=== PATIENT | male | born 1950 | race Caucasian/White ===

== ENCOUNTER → 2019-03-29 12:20 | Outpatient (BNVA) | payer MEDICARE, MEDICAID, SELFPAY | PROVIDERS: Family Provider Family Medicine; PCP Family Medicine; Visit Provider Family Medicine | DX: I11.0 Hypertensive heart disease with heart failure (principal); I50.30 Unspecified diastolic (congestive) heart failure; J30.2 Other seasonal allergic rhinitis; R73.03 Prediabetes; R25.1 Tremor, unspecified; E83.42 Hypomagnesemia; E87.6 Hypokalemia; R60.9 Edema, unspecified; J44.1 Chronic obstructive pulmonary disease with (acute) exacerbation; Z87.891 Personal history of nicotine dependence | CPT/HCPCS: 36415; 80048; 83036; 83735 ==

== ENCOUNTER → 2019-08-23 13:30 | Outpatient (BNVA) | payer MEDICARE, MEDICAID, SELFPAY | PROVIDERS: Family Provider Family Medicine; PCP Family Medicine; Visit Provider Family Medicine | DX: I10 Essential (primary) hypertension; R60.9 Edema, unspecified; E83.42 Hypomagnesemia; R25.1 Tremor, unspecified; E87.6 Hypokalemia; R73.03 Prediabetes; L03.115 Cellulitis of right lower limb | CPT/HCPCS: 80048; 83036; 83735 ==

== ENCOUNTER → 2019-11-08 17:17 | Outpatient (BNVA) | payer MEDICARE, MEDICAID, SELFPAY | PROVIDERS: Family Provider Family Medicine; PCP Family Medicine; Visit Provider Family Medicine | DX: L03.90 Cellulitis, unspecified (principal); I10 Essential (primary) hypertension; R60.9 Edema, unspecified; E83.42 Hypomagnesemia; R25.1 Tremor, unspecified; E87.6 Hypokalemia; R73.03 Prediabetes | CPT/HCPCS: 80048; 80061 ==

== ENCOUNTER → 2020-01-31 18:00 | Outpatient (BNVA) | payer MEDICARE, MEDICAID, SELFPAY ==
[2019-11-10 15:33] VITALS: BP 118/65; BMI 39.4
== END ==
PROVIDERS: PCP Family Medicine; Visit Provider Family Medicine
DX: J44.9 Chronic obstructive pulmonary disease, unspecified (principal); F17.208 Nicotine dependence, unspecified, with other nicotine-induced disorders; N40.1 Benign prostatic hyperplasia with lower urinary tract symptoms; R39.11 Hesitancy of micturition; E87.6 Hypokalemia; R25.1 Tremor, unspecified; R60.9 Edema, unspecified; I10 Essential (primary) hypertension; R73.03 Prediabetes; Z23 Encounter for immunization; L30.9 Dermatitis, unspecified; F25.1 Schizoaffective disorder, depressive type
CPT/HCPCS: 80048; 83036

== ENCOUNTER → 2020-03-13 11:08 | Outpatient (BNVA) | payer OTHER, SELFPAY ==
[2019-11-10 15:33] VITALS: BP 118/65; BMI 39.4
== END ==
PROVIDERS: PCP Family Medicine; Visit Provider Family Medicine
DX: E87.6 Hypokalemia (principal)
CPT/HCPCS: 80048

== ENCOUNTER → 2020-06-20 16:24 | Outpatient (BNVA) | payer MEDICARE, MEDICAID, SELFPAY ==
[2019-11-10 15:33] VITALS: BP 118/65; BMI 39.4
== END ==
PROVIDERS: PCP Family Medicine; Visit Provider Family Medicine
DX: E83.42 Hypomagnesemia (principal); R73.03 Prediabetes; E87.1 Hypo-osmolality and hyponatremia
CPT/HCPCS: 80048; 83036; 83735

== ENCOUNTER → 2020-07-31 14:45 | Outpatient (BNVA) | payer OTHER, SELFPAY ==
[2019-11-10 15:33] VITALS: BP 118/65; BMI 39.4
== END ==
PROVIDERS: PCP Family Medicine; Visit Provider Psychiatry & Neurology Neurology
DX: F25.1 Schizoaffective disorder, depressive type (principal)
CPT/HCPCS: 36415; 80061

== ENCOUNTER → 2021-02-12 12:25 | Outpatient (BNVA) | payer MEDICARE, MEDICAID, SELFPAY ==
[2020-08-06 13:40] VITALS: BP 125/64; BMI 36.8
== END ==
PROVIDERS: PCP Family Medicine; Visit Provider Family Medicine
DX: J44.9 Chronic obstructive pulmonary disease, unspecified (principal); M54.9 Dorsalgia, unspecified; G89.29 Other chronic pain; I10 Essential (primary) hypertension; J30.2 Other seasonal allergic rhinitis; R60.9 Edema, unspecified; E83.42 Hypomagnesemia; N40.1 Benign prostatic hyperplasia with lower urinary tract symptoms; R39.11 Hesitancy of micturition; E11.9 Type 2 diabetes mellitus without complications
CPT/HCPCS: 80053; 80061; 83036; 83735; 85025

== ENCOUNTER → 2021-04-18 15:30 | Outpatient (BNVA) | payer MEDICARE, MEDICAID, SELFPAY ==
[2020-08-06 13:40] VITALS: BP 125/64; BMI 36.8
== END ==
PROVIDERS: PCP Family Medicine; Visit Provider Family Medicine
DX: N39.498 Other specified urinary incontinence (principal); N40.1 Benign prostatic hyperplasia with lower urinary tract symptoms; E87.1 Hypo-osmolality and hyponatremia; I10 Essential (primary) hypertension; D72.9 Disorder of white blood cells, unspecified; R60.9 Edema, unspecified; R73.03 Prediabetes; D72.821 Monocytosis (symptomatic)
CPT/HCPCS: 80048; 81000; 85007; 85027

== ENCOUNTER → 2021-09-11 13:16 | Outpatient (BNVA) | payer OTHER, SELFPAY ==
[2021-09-11 08:58] VITALS: BP 124/60; BMI 36.2
== END ==
PROVIDERS: PCP Family Medicine; Visit Provider Psychiatry & Neurology Neurology
DX: Z79.899 Other long term (current) drug therapy (principal); F25.0 Schizoaffective disorder, bipolar type
CPT/HCPCS: 80053; 80061; 83036

== ENCOUNTER → 2022-02-27 10:56 | Outpatient (BNVA) | payer MEDICARE, OTHER, SELFPAY ==
[2021-09-16 16:12] VITALS: BP 135/76; BMI 35.7
== END ==
PROVIDERS: PCP Family Medicine; Visit Provider Family Medicine
DX: I10 Essential (primary) hypertension (principal); E11.9 Type 2 diabetes mellitus without complications; J44.9 Chronic obstructive pulmonary disease, unspecified; M54.9 Dorsalgia, unspecified; R60.9 Edema, unspecified; J30.2 Other seasonal allergic rhinitis; E83.42 Hypomagnesemia; G89.29 Other chronic pain; N40.1 Benign prostatic hyperplasia with lower urinary tract symptoms; E87.6 Hypokalemia; J44.1 Chronic obstructive pulmonary disease with (acute) exacerbation; E87.1 Hypo-osmolality and hyponatremia; R39.11 Hesitancy of micturition; Z68.36 Body mass index [BMI] 36.0-36.9, adult
CPT/HCPCS: 80048; 83036; 83735

== ENCOUNTER → 2022-08-28 10:18 | Outpatient (BNVA) | payer MEDICARE, MEDICAID, SELFPAY ==
[2021-09-16 16:12] VITALS: BP 135/76; BMI 35.7
== END ==
PROVIDERS: PCP Family Medicine; Visit Provider Registered Nurse
DX: Z79.899 Other long term (current) drug therapy (principal)
CPT/HCPCS: 80053; 80061; 82306; 82607; 83036; 85025

== ENCOUNTER → 2023-02-26 11:25 | Outpatient (BNVA) | payer MEDICARE, MEDICAID, SELFPAY ==
[2022-09-01 11:44] VITALS: BP 120/63; BMI 34.0
== END ==
PROVIDERS: PCP Family Medicine; Visit Provider Family Medicine
DX: E11.9 Type 2 diabetes mellitus without complications (principal); Z12.5 Encounter for screening for malignant neoplasm of prostate
CPT/HCPCS: 80048; 83036; G0103

== ENCOUNTER → 2023-08-27 10:32 | Outpatient (BNVA) | payer MEDICARE, OTHER, SELFPAY ==
[2022-09-01 11:44] VITALS: BP 120/63; BMI 34.0
== END ==
PROVIDERS: PCP Family Medicine; Visit Provider Psychiatry & Neurology Psychiatry
DX: Z79.899 Other long term (current) drug therapy (principal); F25.1 Schizoaffective disorder, depressive type; F17.208 Nicotine dependence, unspecified, with other nicotine-induced disorders; I10 Essential (primary) hypertension; E11.9 Type 2 diabetes mellitus without complications
CPT/HCPCS: 80061; 83036; 83735; 84443; 85025

== ENCOUNTER → 2024-02-25 10:00 | Outpatient (BNVA) | payer MEDICARE, OTHER, SELFPAY ==
[2022-09-01 11:44] VITALS: BP 120/63; BMI 34.0
== END ==
PROVIDERS: PCP Family Medicine; Visit Provider Family Medicine
DX: Z12.5 Encounter for screening for malignant neoplasm of prostate (principal); I10 Essential (primary) hypertension; E11.9 Type 2 diabetes mellitus without complications; J44.1 Chronic obstructive pulmonary disease with (acute) exacerbation
CPT/HCPCS: 80053; 80061; 83036; 83735; 85025; G0103

== ENCOUNTER → 2024-03-10 10:45 | Outpatient (BNVA) | payer MEDICARE, SELFPAY ==
[2022-09-01 11:44] VITALS: BP 120/63; BMI 34.0
== END ==
PROVIDERS: PCP Family Medicine; Visit Provider Podiatrist Foot & Ankle Surgery
DX: E11.621 Type 2 diabetes mellitus with foot ulcer (principal); L97.512 Non-pressure chronic ulcer of other part of right foot with fat layer exposed
CPT/HCPCS: 99203

== ENCOUNTER → 2024-04-28 13:46 | Outpatient (BNVA) | payer MEDICARE, SELFPAY ==
[2022-09-01 11:44] VITALS: BP 120/63; BMI 34.0
== END ==
PROVIDERS: PCP Family Medicine; Visit Provider Family Medicine
DX: R31.9 Hematuria, unspecified (principal); E87.1 Hypo-osmolality and hyponatremia
CPT/HCPCS: 80048; 81000

== ENCOUNTER → 2024-06-30 16:50 | Outpatient (BNVA) | payer MEDICARE, OTHER, SELFPAY ==
[2022-09-01 11:44] VITALS: BP 120/63; BMI 34.0
== END ==
PROVIDERS: PCP Family Medicine; Visit Provider Psychiatry & Neurology Psychiatry
DX: Z79.899 Other long term (current) drug therapy (principal)
CPT/HCPCS: 80053; 80061; 83036; 84443; 85025

== ENCOUNTER → 2024-10-18 15:24 | Outpatient (BNVA) | payer MEDICARE, SELFPAY ==
[2022-09-01 11:44] VITALS: BP 120/63; BMI 34.0
== END ==
PROVIDERS: PCP Family Medicine; Visit Provider Family Medicine
DX: I10 Essential (primary) hypertension (principal); E87.6 Hypokalemia
CPT/HCPCS: 80053; 85025

== ENCOUNTER → 2025-03-20 08:51 | Outpatient (BNVA) | payer MEDICARE, MEDICAID, SELFPAY ==
[2022-09-01 11:44] VITALS: BP 120/63; BMI 34.0
== END ==
PROVIDERS: PCP Family Medicine; Visit Provider Family Medicine
DX: E11.9 Type 2 diabetes mellitus without complications (principal); I10 Essential (primary) hypertension
CPT/HCPCS: 80053; 83036; 85025